=== PATIENT | male | born 1985 | race American Indian/Alaskan Native ===

== ENCOUNTER 2021-05-21 21:39 | Emergency (ER) | payer SELFPAY ==
[2021-05-21 23:09] VITALS: BP 138/86
--- NOTE | 2021-05-21 23:23 | XRay Report ---
CHEST PA AND LATERAL VIEWS INDICATION: chest pain. COMPARISON: None. FINDINGS: Support devices: None. Heart: Within normal limits. Lungs/Pleura: No acute pulmonary or pleural findings. IMPRESSION: 1. No acute findings. Signer Name: Nik Lay MD Signed: 05/21/2021 11:18 PM Workstation Name: [id number]
--- NOTE | 2021-05-21 23:42 | Emergency Department Report ---
ED General Adult HPI - General Chief complaint: Chest Pain Stated complaint: CHEST PAIN Time Seen by Provider: 05/21/21 23:10 Source: patient Mode of arrival: Ambulatory Limitations: No Limitations - History of Present Illness Initial comments: 36-year-old male patient with history of tobacco use and recurrent bronchitis presents to the emergency department with complaints of chest pain, cough, and sore throat starting 2 days ago. No current steroid or antibiotic use. No known sick contacts. Patient has been staying at a hotel where he suspects he may have been exposed to mold. States he developed similar symptoms every time he stays at this particular hotel. Patient did not receive his COVID-19 vaccination series. He has been using [id number] cough/cold medications for symptomatic relief. Denies fever, chills, headache, neck stiffness, shortness of breath, vomiting, syncope. Denies all other complaints at this time. - Related Data Previous Rx's Medication Instructions Recorded Last Taken Type Albuterol Sulfate [Proair 90 mcg IH Q4H #1 aer.pw.bas 05/21/21 Unknown Rx Digihaler] Benzonatate [Tessalon Perles] 200 mg PO Q8HR #30 capsule 05/21/21 Unknown Rx predniSONE [Deltasone] 20 mg PO QDAY #7 tab 05/21/21 Unknown Rx Allergies Allergy/AdvReac Type Severity Reaction Status Date / Time No Known Allergies Allergy Unverified 05/21/21 22:09 ED Review of Systems ROS: Stated complaint: CHEST PAIN Other details as noted in HPI Other: GENERAL: Negative for fever, chills, weight change, anorexia, fatigue. ENT: Positive for sore throat. CARDIOVASCULAR: Positive for chest pain. PULMONARY: Positive for cough. GASTROINTESTINAL: Negative for abdominal pain, nausea, vomiting, diarrhea, constipation. MUSCULOSKELETAL: Negative for joint pain, joint swelling, myalgias, back pain, neck pain. NEUROLOGICAL: Negative for headache, seizure, syncope, paresthesias, weakness. INTEGUMENTARY: Negative for erythema, rash, diaphoresis, laceration, ecchymosis. HEMATOLOGICAL: Negative for hemoptysis, hematemesis, hematochezia, hematuria. PSYCHIATRIC: Negative for hallucinations, suicidal ideation, homicidal ideation, anxiety, depression. ED Past Medical Hx - Past Medical History Previous Medical History?: No - Surgical History Past Surgical History?: No - Social History Smoking Status: Current Every Day Smoker Substance Use Type: None - Medications Home Medications: Home Medications Medication Instructions Recorded Confirmed Last Taken Type Albuterol Sulfate [Proair 90 mcg IH Q4H #1 aer.pw.bas 05/21/21 Unknown Rx Digihaler] Benzonatate [Tessalon Perles] 200 mg PO Q8HR #30 capsule 05/21/21 Unknown Rx predniSONE [Deltasone] 20 mg PO QDAY #7 tab 05/21/21 Unknown Rx ED Physical Exam - General Limitations: No Limitations - Other Other exam information: General: Awake and alert. No acute distress. Head: Atraumatic, normocephalic. Eyes: EOMI. Pupils are equal and round. Normal sclera and conjunctiva. ENT: Oral mucosa is moist. Mild pharyngeal erythema. No tonsillar swelling or exudate. Uvula is midline and nonedematous. No trismus. Patient is handling his secretions and speaking in a normal voice without difficulty. Neck: Supple. No lymphadenopathy. Pulmonary: No respiratory distress. Mild rhonchi and expiratory wheezing bilaterally. Cardiac: Regular rate and rhythm. Pulses are palpable and equal bilaterally. No lower extremity cyanosis or edema. Skin: Warm and dry. No rashes. Abdomen: Soft, non-tender, non-protuberant. No guarding, rigidity, or rebound. Bowel sounds are normal. No organomegaly or masses noted. Back: Normal alignment. No CVA tenderness. Extremities: Symmetrical. Full range of motion intact. Neurological: Alert and oriented, appropriately interactive, no focal deficits. Psych: Cooperative. Appropriate mood and affect. Speech is evenly metered. Thoughts are logically construed. ED Course Vital Signs 05/21/21 22:12 Temperature 98.1 F Pulse Rate 82 Respiratory 18 Rate Blood Pressure 138/86 O2 Sat by Pulse 95 Oximetry ED Medical Decision Making - Medical Decision Making Differential diagnosis including but not limited to: pneumonia, asthma, pleural effusion, pneumothorax, viral upper respiratory infection, pertussis Patient presents to the emergency department with complaints of chest pain, sore throat, and cough. He has a history of tobacco use. He has been diagnosed with "bronchitis" on multiple prior occasions. Patient has identified a pattern to his symptoms, states his symptoms seem to flareup every time he stays at a particular hotel. He is afebrile, hemodynamically stable, no hypoxia, no respiratory distress, tolerating oral intake without difficulty, ambulatory without assistance. He does not report shortness of breath. Chest x-ray is negative. COVID-19 testing is currently unavailable at this facility. History and exam findings suggestive of viral upper respiratory infection versus reactive airway disease. Patient does not meet criteria for empiric antibiotics in the absence of chest x-ray findings with symptoms present less than 10 days. No clinical indication for further diagnostic work-up on an emergent basis at this time. Patient will be discharged home with beta agonist inhaler and short course of glucocorticoids. Referred to primary care provider as well as pricing intern for close outpatient follow-up. Patient expressed understanding and is agreeable to plan of care. Smoking cessation encouraged. Strict return precautions provided. History, exam, diagnostic testing, and current condition do not suggest worrisome pathology to warrant further testing, continued ED treatment, admission, or surgical evaluation at this point. Given the low probability of a significant medical illness, it would be more likely to result in harm than benefit to perform further testing at this stage. Discussed findings, presumptive diagnosis, need for follow-up and specific signs/symptoms that lakhwinder uld prompt immediate return to the emergency department. Instructions were explained in detail to the patient in addition to giving written discharge information. Patient expressed understanding and was given the opportunity to ask questions, all of which were satisfactorily answered prior to discharge home. Critical care attestation.: If time is entered above; I have spent that time in minutes in the direct care of this critically ill patient, excluding procedure time. ED Disposition Clinical Impression: Viral upper respiratory tract infection with cough, Wheezing on expiration Disposition: HOME / SELF CARE / HOMELESS Is pt being admited?: No Does the pt Need Aspirin: No Condition: Stable Instructions: Viral Respiratory Infection, [id number]-Dr-Uzvh Additional Instructions: Take Tylenol every 4 hours as needed for pain. Take Prednisone with food as directed. Use Albuterol inhaler as directed. Take Tessalon as directed for cough. Rest. Drink plenty of fluids. Wash hands frequently to prevent disease transmission. Do not share food or drinks with others. Please quit smoking. Consider using an air purifier if you suspect an environmental exposure is contributing to your symptoms. Follow-up with primary care provider and pricing intern this week. Call Monday to schedule an appointment. See referral information below. Return to the emergency department immediately for new or worsening symptoms. Specifically, return to the emergency department immediately for fever, difficulty breathing, dehydration, mental status changes, worsening chest pain, or any other concerns. Prescriptions: predniSONE [Deltasone] 20 mg PO QDAY #7 tab Albuterol Sulfate [Proair Digihaler] 90 mcg IH Q4H #1 aer.pw.bas Benzonatate [Tessalon Perles] 200 mg PO Q8HR #30 capsule Referrals: LOLITA AYALA MD [Staff Physician] - 3-5 Days [facility] [Provider Group] - 3-5 Days ALICIA SUNG MD [Staff Physician] - 3-5 Days Forms: Work/School Release Form(ED) Time of Disposition: 23:47
--- NOTE | 2021-05-24 14:12 | Electrocardiograph Report ---
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
== END 2021-05-22 00:46 | disposition home or self-care (01) ==
LOC: ED 21:39
DX: J06.9 Acute upper respiratory infection, unspecified (principal); R05 Cough; R06.2 Wheezing; B97.89 Other viral agents as the cause of diseases classified elsewhere; F17.200 Nicotine dependence, unspecified, uncomplicated; Z79.899 Other long term (current) drug therapy
CPT/HCPCS: 71046; 93005

== ENCOUNTER 2021-09-14 17:03 | Emergency (ER) | payer SELFPAY ==
[2021-09-14 17:07] VITALS: BP 167/104
[2021-09-14] MEDS ORDERED: IBUPROFEN 800 MG TAB PO ONE (18:21)
--- NOTE | 2021-09-14 18:58 | XRay Report ---
CHEST 2 VIEWS INDICATION / CLINICAL INFORMATION: Chest pain. Diagnosed with pneumonia; medication not working. COMPARISON: 05/21/21. FINDINGS: SUPPORT DEVICES: None. HEART / MEDIASTINUM: The heart size and pulmonary vasculature are normal. LUNGS / PLEURA: No significant pulmonary or pleural abnormality. No pneumothorax. ADDITIONAL FINDINGS: No significant additional findings. IMPRESSION: No acute abnormality or significant change. No evidence of pneumonia. Signer Name: Ruben Cornejo MD Signed: 09/14/2021 6:53 PM Workstation Name: [id number]
--- NOTE | 2021-09-14 18:58 | Emergency Department Report ---
ED General Adult HPI - General Chief complaint: Chest Pain Stated complaint: CHEST PAIN Time Seen by Provider: 09/14/21 18:20 Source: patient Mode of arrival: Ambulatory Limitations: No Limitations - History of Present Illness Initial comments: Patient is a 36-year-old F Kos[place] male who is presenting with headache and congestion. Patient was diagnosed with walking pneumonia a week ago. States he no longer is coughing but does still have some soreness in his chest. Patient over the last 2 to 3 days states he now has congestion and pain in his face. Nasal drainage is yellow to green. Patient endorses having fevers and chills but no body aches nausea vomiting or sore throat. Severity scale (0 -10): 6 - Related Data Previous Rx's Medication Instructions Recorded Last Taken Type Albuterol Sulfate [Proair 90 mcg IH Q4H #1 aer.pw.bas 05/21/21 Unknown Rx Digihaler] Benzonatate [Tessalon Perles] 200 mg PO Q8HR #30 capsule 05/21/21 Unknown Rx predniSONE [Deltasone] 20 mg PO QDAY #7 tab 05/21/21 Unknown Rx Amoxicillin/Potassium Clav 1 each PO BID #14 tablet 09/14/21 Unknown Rx [Augmentin 875-125 Tablet] Fluticasone [Flonase] 1 spray NS QDAY #1 bottle 09/14/21 Unknown Rx Ketorolac [Toradol] 10 mg PO Q6H PRN #12 tablet 09/14/21 Unknown Rx predniSONE [Deltasone] 50 mg PO QDAY #5 tab 09/14/21 Unknown Rx Allergies Allergy/AdvReac Type Severity Reaction Status Date / Time No Known Allergies Allergy Unverified 05/21/21 22:09 ED Review of Systems ROS: Stated complaint: CHEST PAIN Other details as noted in HPI Comment: All other systems reviewed and negative ED Past Medical Hx - Past Medical History Previous Medical History?: No - Surgical History Past Surgical History?: No - Social History Smoking Status: Current Every Day Smoker Substance Use Type: None - Medications Home Medications: Home Medications Medication Instructions Recorded Confirmed Last Taken Type Albuterol Sulfate [Proair 90 mcg IH Q4H #1 aer.pw.bas 05/21/21 Unknown Rx Digihaler] Benzonatate [Tessalon Perles] 200 mg PO Q8HR #30 capsule 05/21/21 Unknown Rx predniSONE [Deltasone] 20 mg PO QDAY #7 tab 05/21/21 Unknown Rx Amoxicillin/Potassium Clav 1 each PO BID #14 tablet 09/14/21 Unknown Rx [Augmentin 875-125 Tablet] Fluticasone [Flonase] 1 spray NS QDAY #1 bottle 09/14/21 Unknown Rx Ketorolac [Toradol] 10 mg PO Q6H PRN #12 tablet 09/14/21 Unknown Rx predniSONE [Deltasone] 50 mg PO QDAY #5 tab 09/14/21 Unknown Rx ED Physical Exam - General Limitations: No Limitations General appearance: alert, in no apparent distress - Head Head exam: Present: atraumatic, normocephalic - Eye Eye exam: Present: normal appearance - ENT ENT exam: Present: mucous membranes moist, other (Mild tenderness palpation of the frontal and ethmoid region) - Neck Neck exam: Present: normal inspection - Respiratory Respiratory exam: Present: normal lung sounds bilaterally. Absent: respiratory distress, wheezes, rales, rhonchi - Cardiovascular Cardiovascular Exam: Present: regular rate, normal rhythm. Absent: systolic murmur, diastolic murmur, rubs, gallop - GI/Abdominal GI/Abdominal exam: Present: soft, normal bowel sounds - Rectal Rectal exam: Present: deferred - Extremities Exam Extremities exam: Present: normal inspection - Back Exam Back exam: Present: normal inspection - Neurological Exam Neurological exam: Present: alert, oriented X3 - Psychiatric Psychiatric exam: Present: normal affect, normal mood - Skin Skin exam: Present: warm, dry, intact, normal color. Absent: rash ED Course Vital Signs 09/14/21 17:06 Temperature 98.8 F Pulse Rate 78 Respiratory 16 Rate Blood Pressure 167/104 [Right] O2 Sat by Pulse 96 Oximetry ED Medical Decision Making - Radiology Data Chest x-ray interpreted by me as be within normal limits - Medical Decision Making Patient is a 36-year-old F [place] male who is presenting with chest discomfort and headache. The chest discomfort likely secondary to some costochondral pain from coughing for an entire week. No pneumonia seen on x-ray. Headache likely from a sinus infection. Will start patient on medication for symptomatic relief discharge patient home Critical care attestation.: If time is entered above; I have spent that time in minutes in the direct care of this critically ill patient, excluding procedure time. ED Disposition Clinical Impression: Acute sinusitis, Costochondral chest pain Disposition: 01 HOME / SELF CARE / HOMELESS Is pt being admited?: No Does the pt Need Aspirin: No Condition: Stable Instructions: Sinusitis, Adult, [id number], Costochondritis Referrals: ASHTYN MURCIA MD [Referring] - 3-5 Days Time of Disposition: 18:57
--- NOTE | 2021-09-15 11:05 | Electrocardiograph Report ---
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
== END 2021-09-15 07:05 | disposition home or self-care (01) ==
LOC: ED 17:03
DX: J01.90 Acute sinusitis, unspecified (principal); F17.200 Nicotine dependence, unspecified, uncomplicated
CPT/HCPCS: 71046; 93005; 99283